=== PATIENT | female | born 1955 | race African-American/Black ===

== ENCOUNTER 2021-12-17 09:47 | Day surgery (SDC) | payer BC ==
[2021-12-17] MEDS ORDERED: LACTATED RINGERS SOLUTION 1,000 ML IV SCH (10:45)
[2021-12-17 10:46] VITALS: BMI 25.7
[2021-12-17 12:33] VITALS: BP 137/83; PULSE 63; RESP 17; TEMP 98.1
== END 2021-12-17 12:46 | disposition home or self-care (01) ==
LOC: JASU-ENDO 09:47
PROVIDERS: ATTEND Internal Medicine
PROC: 0DBM8ZX Excision of Descending Colon, Via Natural or Artificial Opening Endoscopic, Diagnostic (ICD-10-PCS; 2021-12-17)
PROC: 0DBN8ZX Excision of Sigmoid Colon, Via Natural or Artificial Opening Endoscopic, Diagnostic (ICD-10-PCS; 2021-12-17)
PROC: 0DBL8ZX Excision of Transverse Colon, Via Natural or Artificial Opening Endoscopic, Diagnostic (ICD-10-PCS; principal; 2021-12-17 09:30)
DX: Z12.11 Encounter for screening for malignant neoplasm of colon (principal); D12.3 Benign neoplasm of transverse colon; K63.5 Polyp of colon; K64.8 Other hemorrhoids; Z86.010 Personal history of colon polyps
CPT/HCPCS: 88305-TC; C9803-CS; U0003; U0005